=== PATIENT | female | born 1970 | race Two or more races ===

== ENCOUNTER 2025-01-12 16:42 | Emergency (ER) | payer OTHER, MEDICAID ==
[~2025-01-12] VITALS: Ht 165.1 cm; Wt 70.0 kg
[2025-01-12] MEDS: HYDROcodone-ACET 10/325MG TAB PO ONE (18:28)
--- NOTE | 2025-01-12 18:30 | ED.PDOC ---
HPI Comments This is 54 year-old female who presents to the ED via wheelchair with a chief complaint of multiple lacerations to the R foot S/P dog bite hours ago. Upon evaluation, bleeding is controlled. Patient reports attending a neighbors BBQ where she was bit by the neighbors rebecca. Patient reports the pain as a 7/10, with no associated relieving factors. Patient has no further complaints at this time and otherwise denies symptoms of fever, chills, or N/V/D. Chief Complaint: Animal Bite Time Seen by MD: 18:20 Reviewed Notes: Medications, Allergies Allergies: Coded Allergies: Tetanus Toxoid (Verified Allergy, Unknown, 01/12/25) Home Meds Active Scripts Ibuprofen (Ibuprofen) 800 Mg Tab, 800 MG PO Q8HP PRN for 5 Days, #15 TAB Prov:ARCHIE FARFAN 01/12/25 Amoxicillin & Pot Clavulanate (AUGMENTIN TABLET) 875 Mg Tb, 875 MG PO BID for 7 Days, #14 TAB Prov:ARCHIE FARFAN 01/12/25 Information Source: Patient Mode of Arrival: EMS Severity: Moderate Severity of Laceration: Controlled Bleeding Complexity: Simple Timing: Hours Laceration Location: Foot (Right ) Mechanism: Dog Laceration Length (cm): 2 Capillary Refill: < 3 seconds Comments 3 lacerations: 2cm, 1.5cm, 1in Associated Signs and Symptoms: Other (Laceration ) Past Medical History PAST MEDICAL HISTORY: Denies Surgical History: Surgical History (Other): Back Surgery CISCO ENGINEER History: No Pertinent CISCO ENGINEER History Family History Family History: Reviewed,noncontributory to illness, No family hx of Cancer, No family hx of DM, No family hx of Heart lupillo, No family hx of HTN, No family hx ofKidney lupillo, No family hx of Liver lupillo, No family hx of Lung lupillo, No family hx of Stroke Social History Smoker: Cigarettes Alcohol: Denies ETOH Use Drugs: Denies Drug Use Lives In: Home Constitutional: denies: chills, diaphoresis, fatigue, fever, malaise, sweats, weakness, others EENTM: denies: blurred vision, double vision, ear bleeding, ear discharge, ear drainage, ear pain, ear ringing, eye pain, eye redness, hearing loss, mouth pain, mouth swelling, nasal discharge, nose bleeding, nose congestion, nose pain, photophobia, tearing, throat pain, throat swelling, voice changes, others Respiratory: denies: cough, hemoptysis, orthopnea, SOB at rest, shortness of breath, SOB with excertion, stridor, wheezing, others Cardiovascular: denies: chest pain, dizzy spells, diaphoresis, Dyspnea on exertion, edema, irregular heart beat, left arm pain, lightheadedness, palpitations, PND, syncope, others Gastrointestinal: denies: abdomen distended, abdominal pain, blood streaked bowels, constipated, diarrhea, dysphagia, difficulty swallowing, hematemesis, melena, nausea, poor appetite, poor fluid intake, rectal bleeding, rectal pain, vomiting, others Genitourinary: denies: abnormal vagina bleeding, burning, dyspareunia, dysuria, flank pain, frequency, hematuria, incontinence, pain, , vagina discharge, urgency, others Neurological: denies: dizziness, fainting, headache, left sided numbness, left sided weakness, numbness, paresthesia, pre-existing deficit, right sided numbness, right sided weakness, seizure, speech problems, tingling, tremors, weakness, others Musculoskeletal: denies: back pain, gout, joint pain, joint swelling, muscle pain, muscle stiffness, neck pain, others Integumetry: reports: laceration; denies: bruises, change in color, change in hair/nails, dryness, lesions, lumps, rash, wounds, others Allergic/Immunocompromised: denies: Difficulty Healing, Frequent Infections, Hives, Itching, others Hematologic/Lymphatic: denies: anemia, blood clots, easy bleeding, easy bruising, swollen glands, others Endocrine: denies: excessive hunger, excessive sweating, excessive thirst, excessive urination, flushing, intolerance to cold, intolerance to heat, unexplained weight gain, unexplained weight loss, others Psychiatric: denies: anxiety, bipolar disorder, depression, hopeless, panic disorder, schizophrenia, sleepless, suicidal, others All Other Systems: Reviewed and Negative Physical Exam General Appearance: No Apparent Distress, Normal HEENT: Pharynx Normal Neck: Full Range of Motion, Non-Tender Respiratory: Lungs Clear, No Respiratory Distress, Normal Breath Sounds Cardiovascular: No Murmur, Normal Peripheral Pulses, Regular Rate/Rhythm Breast Exam: Deferred Gastrointestinal: Non Tender, Soft Genitalia: Deferred Pelvic: Deferred Rectal: Deferred Extremities: No calf tenderness, Normal capillary refill, Normal range of motion, No pedal edema Musculoskeletal : Apperance: Normal Neurologic: Alert, 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 Puncture noted to anterior ankle measuring 1.5 cm.), Normal Color, Warm Lymphatic: No Adenopathy Was a procedure done? Was a procedure done?: Yes Sedation Sedation?: No Laceration Repair : Location Dorsum R Foot Length 3 lacerations : 1 inch, 2cm, 1.5cm Anesthetic: Lidocaine, Without epi Laceration Repair Prep: Saline Laceration Repair Wound Comple: epidermis/dermis repair Laceration Repair: Number of sutures (4 ), Skin, Simple, Non-adherent gauze Informed consent obtained: Yes Risks, benefits, and alternati: Yes Differential diagnosis Generic Laceration: Laceration X-Ray, Labs, Meds, VS Vital Signs Date Time Temp Pulse Resp B/P (MAP) Pulse Ox O2 Delivery O2 Flow Rate FiO2 01/12/25 18:36 68 16 96 Room Air 01/12/25 18:36 98.7 69 18 152/89 (110) 97 98.7 01/12/25 16:50 98.8 101 24 169/105 96 98.8 Current Medications Medications (Trade) Dose Ordered Sig/Costa Route Start Time Stop Time Status Last Admin Acetaminophen/ Hydrocodone Bitart ([place] 10/325MG Tab) 1 tab ONCE ONCE PO 01/12/25 18:30 01/12/25 18:31 DC 01/12/25 18:28 Ceftriaxone Sodium (Rocephin) 1,000 mg ONCE ONCE IM 01/12/25 18:45 01/12/25 18:46 DC 01/12/25 18:41 X-Ray, Labs, Meds, VS Comment See procedure note. Dog wounds loose least sutured open for drainage Patient given Rocephin 1 g IM. Refused tetanus state she is allergic state she will go into anaphylactic shock. Script prophylactic trial of Augmentin. Advised to take medications as prescribed side effects discussed. Advised him to follow up in two days with PCP if unable to get in with PCP follow up at urgent care or back here in the ER for wound re-evaluation. Advised on ER return precautions patient indicates understanding and agrees with discharge plan of care. Images Reviewed?: Images reviewed and evaluated by me Time of 1ST Reevaluation: 19:03 Reevaluation 1ST: Unchanged Time of 2ND Reevaluation: 18:59 Reevaluation 2ND: Improved Patient Education/Counseling: Diagnosis, Treatment Family Education/Counseling: Diagnosis, Treatment, Need For Follow Up Departure 1 Departure Time of Disposition: 18:58 Impression: Primary Impression: Laceration of dorsum of right foot Additional Impression: Dog bite of right foot Qualified Codes: S91.351A - Open bite, right foot, initial encounter; W54.0XXA - Bitten by dog, initial encounter Disposition: HOME / SELF CARE / HOMELESS Condition: Stable e-Prescriptions Ibuprofen (Ibuprofen) 800 Mg Tab 800 MG PO Q8HP PRN for 5 Days, #15 TAB Prov: ARCHIE FARFAN 01/12/25 Amoxicillin & Pot Clavulanate (AUGMENTIN TABLET) 875 Mg Tb 875 MG PO BID for 7 Days, #14 TAB Prov: ARCHIE FARFAN 01/12/25 Discharged With: Self Critical Care Note Critical Care Time?: No Stability Stability form required: No Heart Score Heart Score: Heart Score Response (Comments) Value History N/A 0 EKG N/A 0 Age N/A 0 Risk Factors N/A 0 Troponin N/A 0 Total 0 I personally scribed for ER ([email or web address]) on 01/12/25 at 18:30. Electronically submitted by Madeline Schuler ([email or web address]). I personally scribed for ER ([email or web address]) on 01/12/25 at 18:48. Electronically submitted by Madeline Schuler ([email or web address]). I personally scribed for ER ([email or web address]) on 01/12/25 at 18:57. Electronically submitted by Madeline Schuler ([email or web address]). ER Jan 12, 2025 18:30 ARCHIE FARFAN Jan 12, 2025 18:59
[2025-01-12 18:36] VITALS: BP 152/89; PULSE 68; RESP 16; TEMP 98.7; O2SAT 96
[2025-01-12] MEDS: cefTRIAXone SOD 1,000 MG VL IM ONE (18:41)
[2025-01-12] MEDS ORDERED: IBUP-1456 PO (18:59)
[2025-01-12] MEDS ORDERED: AUG875T PO (18:59)
== END 2025-01-12 19:03 | disposition home or self-care (01) ==
LOC: EDBD 16:42 → ER 16:42
DX: S91.311A Laceration without foreign body, right foot, initial encounter (principal); S91.351A Open bite, right foot, initial encounter; F17.210 Nicotine dependence, cigarettes, uncomplicated; W54.0XXA Bitten by dog, initial encounter; Y93.89 Activity, other specified; Y92.89 Other specified places as the place of occurrence of the external cause; Y99.8 Other external cause status
CPT/HCPCS: 12002; 96372; 99283; J0696